=== PATIENT | female | born 1985 | race African-American/Black ===

== ENCOUNTER 2022-07-12 11:27 | Outpatient (CLI) | payer BC | END 2022-07-12 11:28 | disposition home or self-care (01) | LOC: BICMAMMO 11:27 | PROVIDERS: ATTEND Student in an Organized Health Care Education/Training Program | DX: Z12.31 Encounter for screening mammogram for malignant neoplasm of breast (principal); Z80.3 Family history of malignant neoplasm of breast | CPT/HCPCS: 77063; 77067 ==

== ENCOUNTER 2023-09-21 11:59 | Outpatient (CLI) | payer BC | END 2023-09-21 12:00 | disposition home or self-care (01) | LOC: BICMAMMO 11:59 | PROVIDERS: ATTEND Student in an Organized Health Care Education/Training Program | DX: Z12.31 Encounter for screening mammogram for malignant neoplasm of breast (principal); Z80.3 Family history of malignant neoplasm of breast | CPT/HCPCS: 77063; 77067 ==

== ENCOUNTER 2024-07-10 08:41 | Outpatient (CLI) | payer BC ==
[2024-07-10] MEDS ORDERED: Magnevist 469MG/ML 20 ML VIAL ONE (09:11)
== END 2024-07-10 08:42 | disposition home or self-care (01) ==
LOC: MRI 08:41
PROVIDERS: ATTEND Psychiatry & Neurology Neurology
DX: R41.3 Other amnesia (principal); I63.9 Cerebral infarction, unspecified
CPT/HCPCS: 70553; 76377; A9579

== ENCOUNTER 2024-09-25 15:25 | Outpatient (CLI) | payer BC | END 2024-09-25 15:26 | disposition home or self-care (01) | LOC: BICMAMMO 15:25 | PROVIDERS: ATTEND Student in an Organized Health Care Education/Training Program | DX: Z12.31 Encounter for screening mammogram for malignant neoplasm of breast (principal); Z80.3 Family history of malignant neoplasm of breast | CPT/HCPCS: 77063; 77067 ==